=== PATIENT | male | born 1970 | race Caucasian/White ===

== ENCOUNTER 2022-09-30 17:37 | Emergency (ER) | payer OTHER, SELFPAY ==
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
[2022-09-30 17:43] VITALS: BP 150/95; BP 165/87; PULSE 116; PULSE 130; RESP 20; TEMP 37.1; O2SAT 97; O2SAT 98; BMI 25.1
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
[2022-09-30] MEDS: Naloxone HCl Nasal TAKE HOME 4 MG SPRAY NOSTRILALT (18:09)
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
--- OUTSIDE RECORDS SUMMARY | 2022-09-30 18:27 | XMS_ITS | Continuity of Care Document ---
Author Name Unknown Organization [facility] al Address [address] [place] [address]- Care Team Providers Care Top Frame Maker Name Role Phone Not on Staff, PCP Primary Care Physician Unavail able Encounter [facility] Date(s): 03/27/22 - 03/28/[address] [address]- Discharge Disposition: A-D/C Home Attending Physician: Dawson Rockwell MD Admitting Physician: Dawson Rockwell MD Referring Physician: Nick Berrios MD Allergies, Adverse Reactions, Alerts Substance Reaction Severity Status Ultram Active traMADOL angry feeling Active Immunizations Given and Recorded Vaccine Date Status Refusal Reason tetanus/diphtheria/pertussis, acel(Tdap) 10/08/09 Given Not Given Vaccine Date Status Refusal Reason influenza virus vaccine, inactivated 03/28/22 Not Given Patient Refuses Medications No Known Medications Problem List Condition Confirmation Course Effective Dates Status Health St atus Informant Atopic dermatitis of hands Confirmed 02/23/08 Active Back pain Confirmed 04/02/09 Active Cigarette smoker Confirmed 02/23/08 Active Drug addiction therapy Confirmed 02/23/08 Active INJURY TO RADIAL NERVE Confirmed 04/02/09 Active Rupture biceps tendon Confirmed 02/23/08 Active Results Orders for Microbiology Reports Name Date Blood Culture 03/27/22 Blood Culture #2 03/27/22 Microbiology Reports TEST:Blood Culture STATUS:Unauthenticated BODY SITE: SOURCE:Blood COLLECTED DATE/TIME:03/27/22 11:24 AM Blood Culture SPECIMEN DESCRIPTION : BLOOD RAC SPECIAL REQUESTS : NONE CULTURE : NO GROWTH AFTER 24 HOURS REPORT STATUS : PRELIMINARY REPORT TEST:Blood Culture, Second Order STATUS:Unauthenticated BODY SITE: SOURCE:Blood COLLECTED DATE/TIME:03/27/22 11:24 AM Blood Culture, Second Order SPECIMEN DESCRIPTION : BLOOD R HAND SPECIAL REQUESTS : NONE CULTURE : NO GROWTH AFTER 24 HOURS REPORT STATUS : PRELIMINARY REPORT Vital Signs Most recent to oldest [Reference Range]: 1 2 3 Height 178 cm (03/28/22 8:32 AM) 178 cm (03/28/22 4:40 AM) 178 cm (03/28/22 12:18 AM) Weight 78.2 kg (03/27/22 2:16 PM) 79.4 kg (03/27/22 10:13 AM) 79.4 kg (03/27/22 10:10 AM) Oxygen Saturation [94-100 %] 98 % (03/28/22 8:32 AM) 100 % (03/28/22 4:40 AM) 98 % (03/28/22 12:18 AM) Pulse Rate [55-90 bpm] 93 bpm *H* (03/28/22 8:32 AM) 73 bpm (03/28/22 4:40 AM) 20 bpm *L* (03/28/22 12:18 AM) Body Mass Index [18.5-24.99 kg/m2] 24.68 kg/m2 (03/27/22 2:16 PM) 25.06 kg/m2 *H* (03/27/22 10:10 AM) Blood Pressure [90-138/55-84 mm Hg] 140/84mm Hg *H* (03/28/22 8:32 AM) 135/59mm Hg (03/28/22 4:40 AM) 132/89mm Hg (03/28/22 12:18 AM) Respiratory Rate [16-30 br/min] 18 br/min (03/28/22 8:32 AM) 18 br/min (03/28/22 4:40 AM) 18 br/min (03/27/22 8:07 PM) Temperature [96.8-100.4 DegF] 98.3 DegF (03/28/22 8:32 AM) 98.4 DegF (03/28/22 4:40 AM) 97.7 DegF (03/28/22 12:18 AM) Mode of Delivery (Oxygen) Room air (03/28/22 8:32 AM) Room air (03/28/22 4:40 AM) Room air (03/28/22 12:18 AM) Blood pressure sites Arm, right (03/28/22 8:32 AM) Arm, left (03/28/22 4:40 AM) Arm, right (03/28/22 12:18 AM) Temperature Route Oral (03/28/22 8:32 AM) Oral (03/28/22 4:40 AM) Oral (03/28/22 12:18 AM) Dry Weight 78.2 kg (03/27/22 2:16 PM) 79.4 kg (03/27/22 10:13 AM) 79.4 kg (03/27/22 10:10 AM) Weight Obtained Via Standing scale (03/27/22 2:16 PM) Standing scale (03/27/22 10:10 AM) Social History Social History Type Response Smoking Status 5-9 cigarettes (betw een 1/4 to 1/2 pack)/day in last 30 days entered on: 03/27/22 Sex Patient Care team information Personnel Name: Not on Staff, PCP
--- OUTSIDE RECORDS SUMMARY | 2022-09-30 18:27 | XMS_ITS | Continuity of Care Document ---
Author Name Unknown Organization [facility] Address [address] [place] [address]- Care Team Providers Care Acid Filler Name Role Phone Nicolasa Mayberry MD Primary Care Physician [place] [facility] [place](s[place] 06/24/22 - 07/24/22 [facility]/[address] [address]- [place] Allergies, Adverse Reactions, Alerts Substance Reaction Severity Status Ultram Active traMADOL angry feeling Active Immunizations Given and Recorded Vaccine Date Status Refusal Reason tetanus/diphtheria/pertussis, acel(Tdap) 10/08/09 Given Not Given Vaccine Date Status Refusal Reason influenza virus vaccine, inactivated 03/28/22 Not Given Patient Refuses Medications apixaban 5 mg oral tablet 1 tablet = 5 mg, By Mouth, 2 times a day, # 60 tablet, 1 Refills, Maintenance, 06/25/22 14:42:00 EST, Tablet, [id number], Partial fill upon patient request if the prescription is for a schedule II opioid drug., 178, cm, 06/24/22 11:02:00 EST,... Start Date: 06/25/22 Status: Ordered melatonin 3 mg oral tablet See Instructions, PRN for insomnia, 1-3 tablet By Mouth Daily at bedtime, # 180 tablet, 1 Refills, Acute 06/11/23 11:53:00 EST, 06/24/22 11:52:00 EST, Tablet, [id number], Partial fill upon patient request if the prescription is for a schedule... Start Date: 06/24/22 Stop Date: 06/11/23 Status: Ordered Nicotine 2 mg gum 1 each = 2 mg, Chew, Every 2 hours, PRN as needed for smoking cessation, for 6 week(s), # 160 each,1 Refills, Acute 09/16/22 11:37:00 EDT, 06/24/22 11:37:00 EST, Gum, [id number], Partial fill upon patient request if the prescription is for a... Start Date: 06/24/22 Stop Date: 09/16/22 Status: Ordered Problem List Condition Confirmation Course Effective Dates Status Health St atus Informant Atopic dermatitis of hands Confirmed 02/23/08 Active Cigarette smoker Confirmed 02/23/08 Active Cocaine use Confirmed Active INJURY TO RADIAL NERVE Confirmed 04/02/09 Active Pulmonary emboli 1 Confirmed Active Rupture biceps tendon Confirmed 02/23/08 Active 1PE on 03/31/23, started on Eliquis. RF are smoking and cociane use Social History Social History Type Response Smoking Status 5-9 cigarettes (betw een 1/4 to 1/2 pack)/day in last 30 days entered on: 03/27/22 Sex Patient Care team information Care Team Personnel Name: Nicolasa Mayberry MD Position: Reference Physician Member Role: PCP Address: Address: [address] [place] [address] Name: Loren Weber RN Position: S RN Member Role: Primary Care Nurse Name: Ritu Chavis RN Position: [facility] RN Member Role: Primary Care Nurse Care Team Related Persons Name: MARCO SRIVASTAVA Address: home [address] [place] [address] Name: ANA PEREZ Address: home [address] [place] [address]
--- OUTSIDE RECORDS SUMMARY | 2022-09-30 18:27 | XMS_ITS | Continuity of Care Document ---
Author Name Unknown Organization [facility] Address [address] [place] [address]- Care Team Providers Care Retirement Manager Name Role Phone Nicolasa Mayberry MD Primary Care Physician [id number] Date[facility]/02/[facility] - 06/01/22 [facility] [address]- [place] Allergies, Adverse Reactions, Alerts Substance Reaction [...] #74 tablet, 0 Refills, Maintenance, 03/31/22 4:12:00 EST, [facility] #[id number], Partial fill upon patient request if [...] Active Rupture biceps tendon Confirmed 02/23/08 Active Social History Social History Type Response Smoking Status 5-9 cigarettes (betw een 1/4 to 1/2 pack)/day in last 30 days entered on: 03/27/22 Sex Patient Care team information Care Team Personnel Name: Nicolasa Mayberry MD Position: Reference Physician Member Role: PCP Address: Address: [address] [place] [id number] Name: Loren Weber RN Position: S RN Member Role: Primary Care Nurse Name: Ritu Chavis RN Position: S RN Member Role: Primary Care Nurse Care Team Related Persons Name: MARCO SRIVASTAVA Address: home [address] [place] [address] Name: ANA PEREZ Address: home [address] [place] [address]
--- OUTSIDE RECORDS SUMMARY | 2022-09-30 18:27 | XMS_ITS | Continuity of Care Document ---
Author Name Unknown Organization [facility] Address [address] [place] [address]- Care Team Providers Care Telecommunications Consultant Name Role Phone Jayant Dunbar NP Primary Care Physician [phone] Encounter [facility] Date(s): 08/07/22 - 09/06/22 [facility]/[address] [address]- Attending Physician: Napoleon Guerrero Admitting Physician: Napoleon Guerrero Referring Physician: AdmtrNapoleon Allergies, Adverse Reactions, Alerts Substance Reaction Severity [...] 11:37:00 EDT, 06/24/22 11:37:00 EST, Gum, [id number], Partial fill upon patient request if the prescription is for a... Start Date: 06/24/22 Stop Date: 09/16/22 Status: Ordered Problem List Condition Confirmation Course Effective Dates Status Health St atus Informant Atopic dermatitis of hands Confirmed 02/23/08 Active Cigarette smoker Confirmed 02/23/08 Active Cocaine use Confirmed Active Personal history of pulmonary embolism 1 Confirmed Active INJURY TO RADIAL NERVE Confirmed 04/02/09 Active Rupture biceps tendon Confirmed 02/23/08 Active 1Found on 03/31/22, on eliquis x 3m. See 06/24/22 note for more details. Social History Social History Type Response Smoking Status 5-9 cigarettes (betw een 1/4 to 1/2 pack)/day in last 30 days entered on: 03/27/22 Sex Note * Jessica Beltre.: PERFORM Event Display: Laboratory Results Scanned Authored Date: [id number] * Jessica Beltre.: PERFORM Event Display: Radiology Results Scanned Authored Date: [id number] Patient Care team information Care Team Personnel Name: Loren Weber RN Position: [facility] RN Member Role: Primary Care Nurse Name: Ritu Chavis RN Position: S RN Member Role: Primary Care Nurse Name: Jayant Dunbar NP Position: [facility] PCO Associate Professional Member Role: PCP Address: Address: [address] [place] [address]- Care Team Related Persons Name: SRIVASTAVA, MARCO Address: home [address] [place] [address] Name: ANA PEREZ Address: home [address] [place] [address]
--- OUTSIDE RECORDS SUMMARY | 2022-09-30 18:27 | XMS_ITS | Continuity of Care Document ---
Author Name Unknown Organization [facility] Address [address] [place] [address]- Care Team Providers Care Editor House Organ Name Role Phone Nicolasa Mayberry MD Primary Care Physician Encounter [facility] R [id number] Date(s): 05/06/22 - 06/05/22 [facility]/[place] [address]- [place] Allergies, Adverse Reactions, Alerts Substance Reaction [...] tablet, 0 Refills, Maintenance, 03/31/22 4:12:00 EST, [facility]/pharmacy #[id number], Partial fill upon patient request [...] Reference Physician Member Role: PCP Address: Address: [address] [place] [id number] Name: Loren Weber RN Position: S RN Member Role: Primary Care Nurse Name: Ritu Chavis RN Position: S RN Member Role: Primary Care Nurse Care Team Related Persons Name: MARCO SRIVASTAVA Address: home [address] [place] [address] Name: ANA PEREZ Address: home [address] [place] [address]
--- OUTSIDE RECORDS SUMMARY | 2022-09-30 18:27 | XMS_ITS | Continuity of Care Document ---
Author Name Unknown Organization [facility] Address [address] [place] [address]- Care Team Providers Care Commercial Art Instructor Name Role Phone Nicolasa Mayberry MD Primary Care Physician [facility] [id number] Date(s): 05/06/22 - 07/04/[address] [address]- Attending Physician: Manuel Starkey MD Admitting Physician: Manuel Starkey MD Allergies, Adverse Reactions, Alerts Substance Reaction [...] 11:37:00 EDT, 06/24/22 11:37:00 EST, G[facility], [id number], Partial fill upon patient request if the [...] Reference Physician Member Role: PCP Address: Address: [address] [place] [address] Name: Loren Weber RN Position: S RN Member Role: Primary Care Nurse Name: Ritu Chavis RN Position: S RN Member Role: Primary Care Nurse Care Team Related Persons Name: CHERI SRIVASTAVAFER Address: home [address] [place] [address] Name: ANA PEREZ Address: home [address] [place] [address]
--- OUTSIDE RECORDS SUMMARY | 2022-09-30 18:28 | XMS_ITS | Continuity of Care Document ---
Author Name Unknown Organization [facility] Address [address] [place] [address]- Care Team Providers Care Enrichment Specialist Name Role Phone Manjinder TERESA, Jayant Primary Care Physician [place] [facility] [place] Date(s): 08/05/22 - 09/04/22 [facility]/[place] [address]- Attending Physician: Jayant Dunbar NP Admitting Physician: Jayant Dunbar NP Allergies, Adverse Reactions, Alerts Substance Reaction Severity [...] 11:37:00 EDT, 06/24/22 11:37:00 EST, G[facility], [id number], Partial fill upon patient request if the [...] Team Personnel Name: Loren Weber RN Position: [facility] RN Member Role: Primary Care Nurse Name: Ritu Chavis RN Position: [facility] RN Member Role: Primary Care Nurse Name: Jayant Dunbar NP Position: [facility] PCO Associate Professional Member Role: PCP Address: Address: [address] [place] [address]- Care Team Related Persons Name: SRIVASTAVA, MARCO Address: home [address] [place] [address] Name: ANA PEREZ Address: home [address] [place] [address]
--- OUTSIDE RECORDS SUMMARY | 2022-09-30 18:28 | XMS_ITS | Continuity of Care Document ---
Author Name Unknown Organization [facility] Address [address] [place] [address]- Care Team Providers Care Advanced Manufacturing Vice President Name Role Phone Nicolasa Mayberry MD Primary Care Physician Encounter [facility] [id number] Date(s): 06/04/22 - 07/04/[address] [address] Attending Physician: AdmNapoleon liao Admitting Physician: Admtr, Ar8 Referring Physician: Admtr, Ar8 Allergies, Adverse Reactions, Alerts Substance Reaction Severity [...] 11:37:00 EDT, 06/24/22 11:37:00 EST, G[facility], [id number], Partial fill upon patient request if the [...] Reference Physician Member Role: PCP Address: Address: [address] [place] [address] Name: Loern Weber RN Position: S RN Member Role: Primary Care Nurse Name: Ritu Chavis RN Position: S RN Member Role: Primary Care Nurse Care Team Related Persons Name: MARCO SRIVASTAVA Address: home [address] [place] [address] Name: ANA PEREZ Address: home [address] [place] [address]
--- OUTSIDE RECORDS SUMMARY | 2022-09-30 18:28 | XMS_ITS | Continuity of Care Document ---
Author Name Unknown Organization [facility] Address [address] [place] [address]- Care Team Providers Care Electrician Elevator Maintenance Name Role Phone Jayant Dunbar NP Primary Care Physician [phone] Encounter [facility] Date(s): 06/24/22 - 09/04/22 [facility]/[address] [address]- Attending Physician: Not on Staff, Attending MD Allergies, Adverse Reactions, Alerts Substance Reaction [...] Team Personnel Name: Loren Weber RN Position: [facility] RN Member Role: Primary Care Nurse Name: Ritu Chavis RN Position: S RN Member Role: Primary Care Nurse Name: Jayant Dunbar NP Position: [facility] PCO Associate Professional Member Role: PCP Address: Address: [address] [place] [address]- Care Team Related Persons Name: MARCO SRIVASTAVA Address: home [address] [place] [address] Name: ANA PEREZ Address: home [address] [place] [address]
--- OUTSIDE RECORDS SUMMARY | 2022-09-30 18:28 | XMS_ITS | Continuity of Care Document ---
Author Name Unknown Organization [facility] Address [address] [place] [address]- Care Team Providers Care Restuarant Crew Worker Name Role Phone Nicolasa Mayberry MD Primary Care Physician [place] [facility] Date(s): 06/24/22 - 07/24/22 [facility] [place] [address]- Attending Physician: Napoleon Guerrero Admitting Physician: AdmtrNapoleon Referring Physician: Admtr, Ar8 Allergies, Adverse Reactions, [...] entered on: 03/27/22 Sex Note * Jessica Beltre: PERFORM Event Display: Laboratory Results Scanned Authored Date: [id number] * Jessica Beltre: PERFORM Event Display: Radiology Results Scanned Authored Date: [id number] Patient Care team information Care Team Personnel Name: Nicolasa Mayberry MD Position: Reference Physician Member Role: PCP Address: Address: [address] [place] [address] Name: Loren Weber RN Position: S RN Member Role: Primary Care Nurse Name: Ritu Chavis RN Position: S RN Member Role: Primary Care Nurse Care Team Related Persons Name: MARCO SRIVASTAVA Address: home [address] [place] [address] Name: ANA PEREZ Address: [address] [address]
--- OUTSIDE RECORDS SUMMARY | 2022-09-30 18:28 | XMS_ITS | Continuity of Care Document ---
Author Name Unknown Organization [facility] Address [address] [place] [address]- Care Team Providers Care Medical Corps Officer Name Role Phone Jayant Dunbar NP Primary Care Physician [phone] Encounter [facility] Date(s): 09/13/22 - 09/13/[address] [address]- Encounter Diagnosis Strain of left forearm(Final) - 09/13/22 Discharge Disposition: A-D/C Home Attending Physician: Rodo Krishna MD Admitting Physician: Rodo Krishna MD Referring Physician: Not on Staff, Referring MD [...] 11:37:00 EDT, 06/24/22 11:37:00 EST, G[facility], [id number], Partial fill upon patient request if the [...] 3m. See 06/24/22 note for more details. Results Radiology Reports * Exam Date Time Procedure Performing Provider Status 09/13/22 10:03 AM Forearm 2 Views Left Toby Simon; Auth (Verified) Notes: (Forearm 2 Views Left) Reason For Exam: with Pain;Trauma RESULT: Forearm 2 Views Left Forearm 2 Views Left Hx of Present Illness: Reports doing yard work and stuff around the house 4 - 12; had resulting left forearm pain and localized area of swelling. weakness to left hand; denies numbness tingling; +CSM.; Reason: Trauma; with Pain; Clinical Question(s): Fracture; COMPARISON: None. FINDINGS: No fractures or bone lesions. The visualized joint spaces are normal. Normal soft tissues. IMPRESSION: No fracture or malalignment. WSN: [id number] Ordering Physician: Cali Mendoza Dictated By: Matt Carcamo MD Dictated Date/Time: 09/13/22 10:22 a Reviewed By: Matt Carcamo MD Signed By: Matt Carcamo MD Signed Date/Time: 09/13/22 10:22 am Transcribed By: STEF Transcribed Date/Time: 09/13/22 10:21 am Vital Signs Most recent to oldest [Reference Range]: 1 2 3 Height 178 cm (09/13/22 10:58 AM) 178 cm (09/13/22 8:52 AM) 178 cm (09/13/22 8:51 AM) Weight 79.4 kg (09/13/22 10:58 AM) 79.4 kg (09/13/22 8:52 AM) 79.4 kg (09/13/22 8:51 AM) Oxygen Saturation [94-100 %] 99 % (09/13/22 10:58 AM) 99 % (09/13/22 8:52 AM) Pulse Rate [55-90 bpm] 74 bpm (09/13/22 10:58 AM) 86 bpm (09/13/22 8:52 AM) Body Mass Index [18.5-24.99 kg/m2] 25.06 kg/m2 *H* (09/13/22 10:58 AM) 25.06 kg/m2 *H* (09/13/22 8:51 AM) Blood Pressure [90-138/55-84 mm Hg] 147/81mm Hg *H* (09/13/22 10:58 AM) 147/89mm Hg *H* (09/13/22 8:52 AM) Respiratory Rate [16-30 br/min] 17 br/min (09/13/22 10:58 AM) 17 br/min (09/13/22 8:52 AM) Temperature [96.8-100.4 DegF] 97.9 DegF (09/13/22 8:52 AM) Mode of Delivery (Oxygen) Room air (09/13/22 10:58 AM) Room air (09/13/22 8:52 AM) Blood pressure sites Arm, left (09/13/22 10:58 AM) Arm, left (09/13/22 8:52 AM) Temperature Route Temporal (09/13/22 8:52 AM) Dry Weight 79.4 kg (09/13/22 10:58 AM) 79.4 kg (09/13/22 8:52 AM) 79.4 kg (09/13/22 8:51 AM) Dry Weight Obtained Via Standing scale (09/13/22 8:51 AM) Social History Social History Type Response Smoking Status 5-9 cigarettes (betw een 1/4 to 1/2 pack)/day in last 30 days entered on: 03/27/22 Sex Note * Rodo Krishna MD: PERFORM Event Display: Patient Education Leaflets Authored Date: [id number] Muscle Strain in the Extremities ?? [id number] Muscle Strain in the Extremities A muscle strain is a stretching and tearing of muscle fibers. This causes pain, especially when youmove that muscle. There may also be some swelling and bruising. Home care ??? Keep the hurt area raised above heart level to reduce pain and swelling. This is especially important during the first 48 hours. ??? Apply an ice pack over the injured area for 15 to 20minutes every??3 to 6??hours. You should do this for??the first??24 to 48 hours.??You can make an ice pack by filling a plastic bag that seals at the top with ice cubes and then wrapping it with a thin towel. Be careful not to injure your skin with the ice treatments. Ice should never be applied directly to skin. Continue the use of ice packs for relief of pain and swelling as needed. After 48 to72 hours, or as directed by your healthcare provider, apply heat??(warm shower or??warm bath)??for 15 to 20 minutes several times a day. Or you can switch between ice and heat. ??? You may use??[id number] pain medicine to control pain, unless another medicine was prescribed. If you have long-term (chronic) liver or kidney disease, ever had a stomach ulcer or gastrointestinal bleeding, or take a blood thinner, talk with your healthcare provider??before??using these medicines. ??? For leg strains: If crutches have been advised, don???t put full weight on the hurt leg until you can do so without pain. You can return to sports when you're able to hop and run on the injured leg without pain. ?? Follow-up care Follow up with your??healthcare provider as advised. ?? When to get medical advice Call your healthcare provider right away if any of these occur: ??? The toes of the injured leg become??swollen, cold, blue, numb, or tingly ??? Pain or swelling increases ?? Last Reviewed Date: 2021 ?? [id number] The [employer]. All rights reserved. This information is not intended as a substitute for professional medical care. Always follow your healthcare professional's instructions. ?? XR Radius and Ulna - left 2 Views * BHSPowerscriopal , CIS S: TRANSCRIBE Matt Carcamo MD: VERIFY Event Display: Result: Authored Date: Forearm 2 Views Left Hx of Present Illness: Reports doing yard work and stuff around the house 09 02-09 03; had resulting left forearm pain and localized area of swelling. weakness to left hand; denies numbness tingling; +CSM.; Reason: Trauma; with Pain; Clinical Question(s): Fracture; COMPARISON: None. FINDINGS: No fractures or bone lesions. The visualized joint spaces are normal. Normal soft tissues. IMPRESSION: No fracture or malalignment. WSN: [id number] Ordering Physician: Cali Mendoza Dictated By: Matt Carcamo MD Dictated Date/Time: 09/13/22 10:22 a Reviewed By: Matt Carcamo MD Signed By: Matt Carcamo MD Signed Date/Time: 09/13/22 10:22 am Transcribed By: STEF Transcribed Date/Time: 09/13/22 10:21 am Patient Care team information Care Team Personnel Name: Loren Weber RN Position: [facility] RN Member Role: Primary Care Nurse Name: Ritu Chavis RN Position: S RN Member Role: Primary Care Nurse Name: Jayant Dunbar NP Position: [facility] PCO Associate Professional Member Role: PCP Address: Address: [address] [place] [address]- Name: Kemar Delatorre RN Position: [facility] ED RN W/OE and Tasks Member Role: Patient Care Provider Name: Rodo Krishna MD Position: [facility] ED Medicine MD Member Role: Admitting Physician Address: Address: [address] [place] [address] [place] [address]- Name: Glenna Parmar Position: [facility] ED OA Member Role: Patient Care Provider Care Team Related Persons Name: CAROLA MARCO Address: home [address] [place] [address] Name: ANA PEREZ Address: [address] [address]
== END 2022-09-30 18:27 | disposition home or self-care (01) ==
LOC: HO.ED 18:26
PROVIDERS: Emergency Provider Internal Medicine
DX: Z04.1 Encounter for examination and observation following transport accident (principal)
CPT/HCPCS: 70450; 99284